=== PATIENT | male | born 1975 | race Caucasian/White ===

== ENCOUNTER 2017-10-09 20:53 | Emergency (ER) | payer MEDICAID ==
[~2017-10-09] VITALS: Ht 177.8 cm; Wt 97.5 kg
[2017-10-09 21:01] VITALS: BP_SYST 136
--- NOTE | 2017-10-09 22:25 | NUR ---
Patient called, unable to find patient in waiting room. Will call again.
--- NOTE | 2017-10-09 22:30 | NUR ---
Patient called for bed placement. Unable to find patient in waiting room. Will call again.
--- NOTE | 2017-10-09 22:35 | NUR ---
Patient left without being seen. Called three times, no answer and unable to find patient in ED waiting room or outside ED.
== END 2017-10-09 22:35 | disposition left against medical advice (07) ==
LOC: SED 20:53
DX: M79.644 Pain in right finger(s) (principal); Z53.21 Procedure and treatment not carried out due to patient leaving prior to being seen by health care provider

== ENCOUNTER 2017-10-10 10:19 | Emergency (ER) | payer MEDICAID ==
[~2017-10-10] VITALS: Ht 177.8 cm; Wt 95.3 kg
[2017-10-10 10:19] VITALS: BP_SYST 147
--- NOTE | 2017-10-10 10:19 | NUR ---
Pt placed to ER bed 05, report given to CRISTINO Lozano.
--- NOTE | 2017-10-10 10:28 | NUR ---
ER at bedside examining patient.
--- NOTE | 2017-10-10 10:35 | NUR ---
TAKEN TO RADIOLOGY DEPT.
--- NOTE | 2017-10-10 11:20 | NUR ---
SPLINT APPLIED TO RIGHT MIDDLE FINGER, WRAPPED WITH KERLIX GAUZE AND TAPED, SKIN CIRCULATION GOOD.
--- NOTE | 2017-10-10 11:30 | NUR ---
Patient given written and verbal discharge instructions and verbalizes understanding. ER MD IRVING discussed with patient the results and treatment provided. Patient in stable condition. ID arm band removed. Rx of NORCO given. Patient educated on pain management and to follow up with PMD. Pain Scale 2. Opportunity for questions provided and answered. Medication side effect fact sheet provided.
== END 2017-10-10 11:30 | disposition home or self-care (01) ==
LOC: SED 10:19
DX: S62.622A Displaced fracture of middle phalanx of right middle finger, initial encounter for closed fracture (principal); W23.0XXA Caught, crushed, jammed, or pinched between moving objects, initial encounter; Y93.89 Activity, other specified; Y92.89 Other specified places as the place of occurrence of the external cause; Y99.8 Other external cause status
CPT/HCPCS: 73140-TC; 99284

== ENCOUNTER 2017-10-16 14:42 | Emergency (ER) | payer MEDICAID ==
[~2017-10-16] VITALS: Ht 177.8 cm; Wt 97.5 kg
[2017-10-16 15:12] VITALS: BP_SYST 132
[2017-10-16] MEDS ORDERED: TUBERCULIN,PURIF.PROT.DERIV. 0.1 ML SYR ID ONE (15:45)
[2017-10-16 16:12] VITALS: BP_SYST 125
== END 2017-10-16 16:11 | disposition home or self-care (01) ==
LOC: SED 14:42
DX: Z11.1 Encounter for screening for respiratory tuberculosis (principal); R03.0 Elevated blood-pressure reading, without diagnosis of hypertension; F12.10 Cannabis abuse, uncomplicated; M79.7 Fibromyalgia; M06.9 Rheumatoid arthritis, unspecified; F17.200 Nicotine dependence, unspecified, uncomplicated
CPT/HCPCS: 86580; 99283

== ENCOUNTER 2017-11-15 12:57 | Emergency (ER) | payer MEDICAID ==
[~2017-11-15] VITALS: Ht 177.8 cm; Wt 90.7 kg
--- NOTE | 2017-11-15 13:10 | NUR ---
Called patient from waiting room, pt was on the phone. stated "give me one minute."
[2017-11-15 13:50] VITALS: BP_SYST 103
--- NOTE | 2017-11-15 13:50 | NUR ---
Pt states that while pushing a beef jerky cart that weights 500lbs, he slipped in water and landed on his Right Hip. No deformity noted, did not hit head.
--- NOTE | 2017-11-15 13:50 | NUR ---
Patient to ER bed 5 to gown for evaluation. Side rails up.
--- NOTE | 2017-11-15 14:02 | NUR ---
ER Dr. Vargas at bedside examining patient.
[2017-11-15] MEDS ORDERED: KETOROLAC TROMETHAMINE 60 MG/2 ML VIAL IM ONE (14:45)
--- NOTE | 2017-11-15 14:47 | NUR ---
Medication was given, pt tolerated well. No adverse reaction, will continue to monitor.
[2017-11-15 16:40] VITALS: BP_SYST 112
--- NOTE | 2017-11-15 16:40 | NUR ---
Patient given written and verbal discharge instructions and verbalizes understanding. ER MD discussed with patient the results and treatment provided. Patient in stable condition. ID arm band removed. Rx of Naprosyn given. Patient educated on pain management and to follow up with PMD. Pain Scale 2/10. Opportunity for questions provided and answered. Medication side effect fact sheet provided. Pt discharged by Dr. Vargas.
== END 2017-11-15 16:40 | disposition home or self-care (01) ==
LOC: SED 12:57
DX: S70.01XA Contusion of right hip, initial encounter (principal); I10 Essential (primary) hypertension; M79.7 Fibromyalgia; M06.9 Rheumatoid arthritis, unspecified; F17.200 Nicotine dependence, unspecified, uncomplicated; Z88.8 Allergy status to other drugs, medicaments and biological substances; W01.0XXA Fall on same level from slipping, tripping and stumbling without subsequent striking against object, initial encounter; Y93.89 Activity, other specified; Y92.89 Other specified places as the place of occurrence of the external cause; Y99.8 Other external cause status
CPT/HCPCS: 72192; 73502; 96374; 99284; J1885